=== PATIENT | male | born 1960 | race Caucasian/White ===

== ENCOUNTER 2018-03-12 02:46 | Emergency (ER) | payer SELFPAY ==
[2018-03-12] MEDS ORDERED: HYDROMORPHONE HCL INJ/PF 2 MG/ML AMPULE IV ONE (03:10)
--- NOTE | 2018-03-12 03:17 | ER Document Report ---
ED General - General Chief Complaint: Rib Pain Stated Complaint: RIB INJURY Time Seen by Provider: 03/12/18 02:57 TRAVEL OUTSIDE OF THE [place] IN LAST 30 DAYS: No - HPI Notes: Patient is a 57-year-old male with history of COPD who presents to the ED complaining of right mid back pain, right rib pain, and right upper quadrant soreness status post fall 3 hours ago. Patient states that he was mowing his yard 4 days ago and his zero turn rolled on top of them. Patient states that he has had generalized soreness since then without any sharp pains. Patient states that he was working on his boat and was on an aluminum ladder about 3 feet in the air when he slipped and landed directly on his right side. Patient states that he did not hit his head or lose consciousness. He has not had any nausea or vomiting. Patient states that he is still been eating/drinking without difficulties and is urinating normally. Denies any headache, fever, head injury, neck pain, changes in vision/speech/mentation/hearing, URI, sore throat, chest pain, palpitations, syncope, cough, shortness of breath, wheeze, dyspnea, abdominal pain, nausea/vomiting/diarrhea, urinary retention, dysuria, hematuria, loss of control of bowel or bladder, numbness/tingling, saddle anesthesia, muscle paralysis/weakness, or rash. - Related Data Allergies/Adverse Reactions: Penicillins Allergy (Verified 03/12/18 02:49) Past Medical History - Social History Smoking Status: Current Every Day Smoker Family History: Reviewed & Not Pertinent - Past Medical History Cardiac Medical History: Reports: Hx Hypertension Pulmonary Medical History: Reports: Hx COPD Endocrine Medical History: Reports: Hx Diabetes Mellitus Type 2 GI Medical History: Reports: Hx Gastroesophageal Reflux Disease Past Surgical History: Reports: Hx Appendectomy, Hx Cardiac Surgery - stents/ catheterization - Immunizations Hx Diphtheria, Pertussis, Tetanus Vaccination: Yes Review of Systems - Review of Systems -: Yes All other systems reviewed and negative Physical Exam - Vital signs Vitals: Temp Pulse Resp BP Pulse Ox 98.5 F 83 20 145/87 H 95 03/12/18 02:51 03/12/18 02:51 03/12/18 02:51 03/12/18 02:51 03/12/18 02:51 - Notes Notes: PHYSICAL EXAMINATION: GENERAL: Pt appears to be in pain and discomfort. A&Ox4. Answers questions appropriately. HEAD: Atraumatic, normocephalic. Non-tender. No stanford sign. No bogginess or hematoma. EYES: Pupils equal round and reactive to light, extraocular movements intact, sclera anicteric, conjunctiva are normal. No raccoon eyes/entrapment. No nystagmus. ENT: EAC clear b/l. TM's intact b/l without erythema, fluid, or perforation. Nares patent and without discharge. oropharynx clear without exudates. No tonsilar hypertrophy or erythema. Moist mucous membranes. No sinus tenderness. No hemotympanum/CSF discharge. NECK: Normal range of motion, supple without lymphadenopathy. No rigidity. No midline tenderness. Chest: No ecchymosis. No flail chest. equal rise/fall. Non-tender LUNGS: Breath sounds clear to auscultation bilaterally and equal. No wheezes rales or rhonchi. HEART: Regular rate and rhythm without murmurs, rubs, gallops. ABDOMEN: Soft, nondistended abdomen. No guarding, no rebound. No masses appreciated. Normal bowel sounds present. No ecchymosis. + mild tenderness RUQ near the lower anterior ribs. Musculoskeletal: Ext b/l: FROM to passive/active. Strength 5+/5. No deficits noted. No bony tenderness of extremities. Back: FROM to passive/active. Strength 5+/5. No vertebral point tenderness, stepoffs, or deformities. + tenderness to the rt thoracic ribs with tenderness extending to the anterior lower chest/abd. Extremities: No cyanosis, clubbing, or edema b/l. Peripheral pulses 2+. Capillary refill less than 2 seconds. NEUROLOGICAL: NIH 0. GCS 15. Cranial nerves grossly intact. Normal speech, normal gait. Normal sensory, motor exams. Reflexes 2+ b/l. PSYCH: Normal mood, normal affect. SKIN: Warm, Dry, normal turgor, no rashes or lesions noted. Course - Re-evaluation Re-evalutation: 03/12/18 03:[address] Salgado for a FAST exam. FAST exam was grossly unremarkable. We will obtain an Abd/pelv CT with IV and give him pain medication. XR ordered/Labs ordered. 03/12/18 05:26 Patient is an afebrile, well-hydrated, 57-year-old male who presents to the ED with right rib pain, suspect contusion. Vitals are acceptable without any significant tachycardia, tachypnea, or hypoxia. PE is otherwise unremarkable. CBC, CMP, coags, rib/chest x-ray, abdomen/pelvis CT were unremarkable for any acute pathology. Patient states that the medication helped. FAST exam negative. No other labs or imaging warranted at this time based on H&P. Low suspicion for any pneumothorax, dissection, respiratory compromise, severe dehydration, sepsis, meningitis, acute abdomen, or other systemic emergent condition at this time. Patient is aware that his condition can change from initial presentation and he needs to monitor symptoms closely and seek medical attention for any acute changes. Recommend conservative measures for symptoms. Recheck with your PCM in 3-5 days. Return to the ED with any worsening/ concerning symptoms otherwise as reviewed in discharge. Patient is in agreement. - Vital Signs Vital signs: Temp Pulse Resp BP Pulse Ox 98.5 F 83 20 145/87 H 95 03/12/18 02:51 03/12/18 02:51 03/12/18 02:51 03/12/18 02:51 03/12/18 02:51 - Laboratory Result Diagrams: 03/12/18 03:23 03/12/18 03:23 Laboratory results interpreted by me: 03/12/18 03:23 Sodium 145.8 H Chloride 109 H BUN 23 H Procedures - Ultrasound/Bedside Ultrasound/Bedside Time completed: 03:10 Ultrasound: Normal Notes: 03/12/18 03:10 FAST exam Indication: blunt trauma to the chest/abdomen. Study: Multiple images were obtained of the liver, spleen, bilateral kidneys, bladder, and associated and surrounding peritoneal spaces. No intraperitoneal free fluid was visualized in any potential space. Impression: Negative limited abdominal study for free intraperitoneal fluid. In this setting of trauma, this study was performed, only to evaluate for potential bleeding from trauma. This is not comprehensive exam intended to diagnose all pathology. This study cannot exclude small amounts intraperitoneal bleeding, solid organ injury, retroperitoneal injury, or bowel perforation. Recommend follow up studies as appropriate based on the clinical situation and the time of presentation post injury. The study was personally performed and interpreted by Dr. Salgado. Discharge - Discharge Clinical Impression: Rib pain on right side Condition: Stable Disposition: HOME, SELF-CARE Instructions: Rib Contusion ([facility]) Additional Instructions: Rest, Ice Tylenol/ibuprofen as needed Light stretches daily Strength exercises as able Moist heat and massage may help F/u with your PCP in 3-5 days for a recheck Consider consult(s) with Orthopedics/physical therapy for ongoing/worsening symptoms Return to the ED with any worsening symptoms and/or development of fever, headache, chest pain, palpitations, syncope, shortness of breath, trouble breathing, abdominal pain, n/v/d, blood in stool/urine, loss of control of bowel /bladder, urinary retention, muscle weakness/paralysis, saddle anesthesia, numbness/tingling, or other worsening symptoms that are concerning to you. Prescriptions: Morphine Sulfate [Morphine Ir 15 Mg Tablet] 15 mg PO TID #15 tablet Forms: Elevated Blood Pressure, Smoking Cessation Education Referrals: [facility] [Provider Group] - Follow up as needed
[2018-03-12 03:38] LABS: ABSOLUTE BASOPHILS # (AUTO) 0.1 10^3/uL (0.0-0.2); ABSOLUTE EOSINOPHILS # (AUTO) 0.2 10^3/uL (0.0-0.6); ABSOLUTE LYMPHOCYTES (AUTO) 2.5 10^3/uL (0.5-4.7); BASOPHILS % (AUTO) 0.7 % (0-2); EOSINOPHILS % (AUTO) 2.5 % (0-6); HEMATOCRIT 44.4 % (37.9-51.0); HEMOGLOBIN 15.6 g/dL (13.5-17.0); LYMPHOCYTES % (AUTO) 28.9 % (13-45); MEAN CORPUSCULAR HEMOGLOBIN 30.6 pg (27.0-33.4); MEAN CORPUSCULAR HGB CONC 35.3 g/dL (32.0-36.0); MEAN CORPUSCULAR VOLUME 87 fl (80-97); MONOCYTES % (AUTO) 10.9 % (3-13); PLATELET COUNT 225 10^3/uL (150-450); RED BLOOD COUNT 5.11 10^6/uL (4.35-5.55); RED CELL DISTRIBUTION WIDTH 13.9 % (11.5-14.0); TOTAL CELLS COUNTED % (AUTO) 100 %; WHITE BLOOD COUNT 8.7 10^3/uL (4.0-10.5)
[2018-03-12 03:42] LABS: INTERNATIONAL RATION (INR) 0.94; PROTHROMBIN TIME 13.1 SEC (11.4-15.4)
[2018-03-12 03:43] LABS: PARTIAL THROMBOPLASTIN TIME 29.4 SEC (23.5-35.8)
[2018-03-12 04:07] LABS: ALANINE AMINOTRANSFERASE 36 U/L (21-72); ALKALINE PHOSPHATASE 68 U/L (38-126); ANION GAP 13 (5-19); ASPARTATE AMINO TRANSFERASE 23 U/L (17-59); BILIRUBIN,DIRECT 0.3 mg/dL (0.0-0.4); BILIRUBIN,TOTAL 0.5 mg/dL (0.2-1.3); BLOOD UREA NITROGEN 23 mg/dL (7-20); CARBON DIOXIDE 24 mmol/L (22-30); CHLORIDE 109 mmol/L (98-107); GLUCOSE 108 mg/dL (75-110); POTASSIUM 3.9 mmol/L (3.6-5.0); SODIUM 145.8 mmol/L (137-145)
[2018-03-12 04:42] LABS: TOTAL PROTEIN 6.6 g/dL (6.3-8.2)
--- NOTE | 2018-03-12 05:12 | RADIOLOGY REPORT (SQ) ---
Clinical History : rt rib pain s/p fall , Exam : Right rib series 03/12/2018 3:11 AM CDT Comparisons : none Findings : There is no acute fracture or dislocation of the ribs. There is no periosteal reaction to suggest non-displaced fracture. There is no evidence of pneumothorax. The visualized portions of the lungs are clear without focal consolidation or pleural effusion. The heart and mediastinal contours are normal in appearance. The thoracic spine is age appropriate. The shoulders are unremarkable. Limited evaluation of the upper abdomen demonstrates no gross abnormalities. Impression: No acute fracture or dislocation of the ribs.
--- NOTE | 2018-03-12 05:23 | RADIOLOGY REPORT (SQ) ---
EXAM DESCRIPTION: CT abdomen and pelvis with contrast 03/12/2018 4:18 AM CDT CLINICAL HISTORY: 57 years, Male, Rt rib pain, RUQ pain s/p fall COMPARISON: None TECHNIQUE: Following the administration of intravenous contrast, volumetric CT acquisition was performed through the abdomen and pelvis. Images in the axial and coronal planes were presented for interpretation This exam was performed according to our departmental dose-optimization program, which includes automated exposure control, adjustment of the mA and/or kV according to patient size and/or use of iterative reconstruction technique. FINDINGS: The visualized portions of the lung bases are clear. The cardiomediastinal structures are within normal limits. There is no free air, blood, or fluid within the abdomen/pelvis. There is no acute solid organ injury to the liver-spleen, or kidneys. There is no acute fracture or dislocation of the visualized ribs, lumbar spine, or bony pelvis. There is no acute aortic traumatic injury. Within the upper abdomen, the liver and spleen are normal in size and morphology. There is diffuse fatty infiltration of the liver. The gallbladder is normal in morphology. The intra/extrahepatic biliary tree is normal in appearance. The pancreas and adrenal glands are normal. The kidneys are normal in size bilaterally. The ureters are normal in course and caliber. There is a cyst along the lower pole the right kidney measuring 3.2 cm in diameter. The stomach and small intestines are within normal limits without evidence of bowel dilation or wall thickening. The appendix is not well-visualized. The colon is stool filled and unremarkable. Within the pelvis, the bladder and rectum are normal. The prostate is age-appropriate. There are no pathologically enlarged inguinal, retroperitoneal, portacaval, or mesenteric lymph nodes. The soft tissue structures of the abdominal wall are normal. The visualized osseous structures are within normal limits for the patient's age. The abdominal aorta and its primary branches are normal in course and caliber. Limited evaluation of the venous structures demonstrates no gross abnormalities. IMPRESSION: 1. No acute intra-abdominal traumatic injury. 2. No acute fracture or dislocation. 3. Fatty liver.
[2018-03-12 05:52] VITALS: BP 140/87
== END 2018-03-12 05:52 | disposition home or self-care (01) ==
LOC: ER 02:46
DX: R07.81 Pleurodynia (principal); M54.9 Dorsalgia, unspecified; R10.11 Right upper quadrant pain; V84.5XXA Driver of special agricultural vehicle injured in nontraffic accident, initial encounter; Y93.H2 Activity, gardening and landscaping; Y92.007 Garden or yard of unspecified non-institutional (private) residence as the place of occurrence of the external cause; Z88.0 Allergy status to penicillin; J44.9 Chronic obstructive pulmonary disease, unspecified
CPT/HCPCS: 99284; 96374; 36415; 85025; 85610; 85730; 80053; 71101; 74177; J1170

== ENCOUNTER 2018-04-13 16:43 | Emergency (ER) | payer SELFPAY ==
--- NOTE | 2018-04-13 19:55 | ER Document Report ---
ED Medical Screen (RME) - General Chief Complaint: Abdominal Pain Stated Complaint: ABDOMINAL PAIN Time Seen by Provider: 04/13/18 19:40 Mode of Arrival: Ambulatory Information source: Patient Notes: Patient is a 57-year-old male who presents to the emergency department after having an outpatient CT abdomen pelvis with IV and oral contrast done. This was ordered by Dr. Brasher. Patient reports that he had an injury to his right ribs approximately 1 month ago which is his reason for seeing Dr. Brasher. Patient reports that the reason for the CT to be ordered today was to evaluate for a hematoma. Patient continues to have point tenderness on the lower right ribs anteriorly at the midclavicular line. Patient denies any chest pain, does report some shortness of breath however patient reports he has a history of COPD and his shortness of breath is at his baseline. Patient denies any nausea , vomiting or fever. Patient does report onset of diarrhea today, patient reports he has had diarrhea 5 times since checking into the emergency department. Patient denies any recent antibiotic use. Exam: Point tenderness to anterior right lower ribs just distal to right nipple, swelling also noted to this area on palpation. Lung sounds are clear to auscultation bilaterally. CT abdomen pelvis reading is without any significant findings. I have greeted and performed a rapid initial assessment of this patient. A comprehensive ED assessment and evaluation of the patient, analysis of test results and completion of the medical decision making process will be conducted by additional ED providers. Dictation of this chart was performed using voice recognition software; therefore, there may be some unintended grammatical errors. TRAVEL OUTSIDE OF THE [place] IN LAST 30 DAYS: No - Related Data Allergies/Adverse Reactions: Penicillins Allergy (Verified 04/13/18 16:44) Past Medical History - Social History Chew tobacco use (# tins/day): No Frequency of alcohol use: None Drug Abuse: None - Past Medical History Cardiac Medical History: Reports: Hx Heart Attack - x3, Hx Hypertension Pulmonary Medical History: Reports: Hx COPD Endocrine Medical History: Reports: Hx Diabetes Mellitus Type 2 Renal/ Medical History: Denies: Hx Peritoneal Dialysis GI Medical History: Reports: Hx Gastroesophageal Reflux Disease Past Surgical History: Reports: Hx Appendectomy, Hx Cardiac Surgery - stents/ catheterization - Immunizations Hx Diphtheria, Pertussis, Tetanus Vaccination: Yes Physical Exam - Vital signs Vitals: Temp Pulse Resp BP Pulse Ox 98.5 F 68 18 135/84 H 94 04/13/18 17:21 04/13/18 17:21 04/13/18 17:21 04/13/18 17:21 04/13/18 17:21 Course - Vital Signs Vital signs: Temp Pulse Resp BP Pulse Ox 98.5 F 68 18 135/84 H 94 04/13/18 17:21 04/13/18 17:21 04/13/18 17:21 04/13/18 17:21 04/13/18 17:21
[2018-04-13] MEDS ORDERED: LIDOCAINE 5% (700 MG) TRANSDERMAL ADH..PATCH TP ONE (20:35)
[2018-04-13 21:21] LABS: APPEARANCE,URINE CLEAR; BILIRUBIN,URINE NEGATIVE (NEGATIVE); COLOR,URINE YELLOW; GLUCOSE, URINE NEGATIVE (NEGATIVE); KETONES,URINE NEGATIVE (NEGATIVE); LEUKOCYTE ESTERASE,URINE NEGATIVE (NEGATIVE); NITRITE,URINE NEGATIVE (NEGATIVE); PROTEIN,URINE NEGATIVE (NEGATIVE); URINE SPECIFIC GRAVITY 1.032
--- NOTE | 2018-04-13 21:36 | RADIOLOGY REPORT (SQ) ---
EXAM DESCRIPTION: CHEST SINGLE VIEW COMPLETED DATE/TIME: 04/13/2018 8:35 pm REASON FOR STUDY: right rib pain COMPARISON: 09/15/2015 EXAM PARAMETERS: NUMBER OF VIEWS: One view. TECHNIQUE: Single frontal radiographic view of the chest acquired. RADIATION DOSE: NA LIMITATIONS: None. FINDINGS: LUNGS AND PLEURA: No opacities, masses or pneumothorax. No pleural effusion. MEDIASTINUM AND HILAR STRUCTURES: No masses. Contour normal. HEART AND VASCULAR STRUCTURES: Heart normal in size. Normal vasculature. BONES: No acute findings. HARDWARE: None in the chest. OTHER: No other significant finding. IMPRESSION: NO ACUTE RADIOGRAPHIC FINDING IN THE CHEST. TECHNICAL DOCUMENTATION: JOB ID: [id number] [employer]- All Rights Reserved Reading location - IP/workstation name: [email or web address]
[2018-04-13 22:09] LABS: ABSOLUTE EOSINOPHILS # (AUTO) 0.5 10^3/uL (0.0-0.6); ABSOLUTE LYMPHOCYTES (AUTO) 2.6 10^3/uL (0.5-4.7); ABSOLUTE MONOCYTES (AUTO) 0.8 10^3/uL (0.1-1.4); ABSOLUTE NEUT (AUTO) 4.9 10^3/uL (1.7-8.2); BASOPHILS % (AUTO) 0.4 % (0-2); EOSINOPHILS % (AUTO) 5.5 % (0-6); HEMATOCRIT 46.1 % (37.9-51.0); HEMOGLOBIN 15.9 g/dL (13.5-17.0); MEAN CORPUSCULAR HEMOGLOBIN 30.7 pg (27.0-33.4); MEAN CORPUSCULAR HGB CONC 34.4 g/dL (32.0-36.0); MEAN CORPUSCULAR VOLUME 89 fl (80-97); MONOCYTES % (AUTO) 8.6 % (3-13); PLATELET COUNT 218 10^3/uL (150-450); RED BLOOD COUNT 5.17 10^6/uL (4.35-5.55); RED CELL DISTRIBUTION WIDTH 13.7 % (11.5-14.0); SEGMENTED NEUTROPHILS % (AUTO) 55.5 % (42-78); TOTAL CELLS COUNTED % (AUTO) 100 %; WHITE BLOOD COUNT 8.8 10^3/uL (4.0-10.5)
[2018-04-13 22:33] LABS: ALANINE AMINOTRANSFERASE 47 U/L (21-72); ALKALINE PHOSPHATASE 74 U/L (38-126); ANION GAP 12 (5-19); ASPARTATE AMINO TRANSFERASE 27 U/L (17-59); BILIRUBIN,DIRECT 0.2 mg/dL (0.0-0.4); BILIRUBIN,TOTAL 0.4 mg/dL (0.2-1.3); BLOOD UREA NITROGEN 16 mg/dL (7-20); CALCIUM 9.2 mg/dL (8.4-10.2); CARBON DIOXIDE 26 mmol/L (22-30); CHLORIDE 105 mmol/L (98-107); CREATINE KINASE 73 U/L (55-170); GLUCOSE 101 mg/dL (75-110); LIPASE 170.6 U/L (23-300); POTASSIUM 3.9 mmol/L (3.6-5.0); TOTAL PROTEIN 6.7 g/dL (6.3-8.2)
[2018-04-13 22:43] LABS: CREATINE KINASE MB 0.72 ng/mL (<4.55)
[2018-04-13 22:47] LABS: TROPONIN I < 0.012 ng/mL
[2018-04-14] MEDS ORDERED: LIDOCAINE 1%/EPINEPHRINE INJ 20 ML VIAL INJ ONE (01:11)
--- NOTE | 2018-04-14 02:00 | PDOC CONSULTATION ---
Consultation Consult Date: 04/14/18 Consult reason:: Evaluate right lower chest pain History of Present Illness Patient complains of: Right upper quadrant and right lower chest pain and right flank pain ever since his fall a month ago. Also complaining of right axillary lump History of Present Illness: FLOWER FAULKNER is a 57 year old male status post fall from a ladder falling on a flat piece of wood on his right lower chest 1 month ago. Was evaluated in the ER and discharged. He complains of pain at the right lower chest and the right upper abdomen ever since. He also noted right axillary lump that eventually ruptured with drainage of blood. This large lump disappeared however he also developed a smaller lump more superficially that he finds to be very painful. No purulent drainage. No fever. Patient has some pain with deep breaths. Some dark urine but no hematuria. His right chest and upper abdominal pain is worsened with deep breathing and any pressure in the area. Past Medical History Cardiac Medical History: Reports: Myocardial Infarction - x3, Hypertension Pulmonary Medical History: Reports: Chronic Obstructive Pulmonary Disease (COPD) Endocrine Medical History: Reports: Diabetes Mellitus Type 2 GI Medical History: Reports: Gastroesophageal Reflux Disease Past Surgical History Past Surgical History: Reports: Appendectomy, Other - Foot debridement Social History Smoking Status: Current Every Day Smoker Frequency of Alcohol Use: None Hx Recreational Drug Use: No Hx Prescription Drug Abuse: No Family History Family History: Reviewed & Not Pertinent Parental Family History Reviewed: No Children Family History Reviewed: No Sibling(s) Family History Reviewed.: No Medication/Allergy Home Medications: Omeprazole Magnesium [Prilosec Otc] 20 mg PO Q6A 07/24/16 Acetaminophen [Tylenol 325 mg Tablet] 650 mg PO Q4HP PRN tablet 07/26/16 Albuterol Sulfate [Proair HFA Inhalation Aerosol 8.5 gm MDI] 2 puff IH Q4H PRN # 1 mdi 07/26/16 Budesonide/Formoterol Fumarate [Symbicort HFA 160-4.5 mcg Inhaler 6 gm] 2 puff NEB BID #1 inhaler 07/26/16 Docusate Sodium [Colace 100 mg Capsule] 100 mg PO DAILY #30 capsule 07/26/16 Hydrocodone/Acetaminophen [[place] 5-325 mg Tablet] 1 - 2 tab PO Q4H PRN #20 tablet 07/26/16 Lovastatin [Mevacor] 10 mg PO DAILY #30 tablet 07/26/16 Metformin HCl [Glucophage 500 mg Tablet] 500 mg PO WBRKFST #30 tablet 07/26/16 Nicotine [Nicoderm 7 mg/24 Hr Transdermal Patch] 1 each TD DAILY #7 patch.td24 07/26/16 Sulfamethoxazole/Trimethoprim [Septra-Ds 800-160 mg Tablet] 1 tab PO Q12 #20 tablet 08/06/16 Morphine Sulfate [Morphine Ir 15 Mg Tablet] 15 mg PO TID #15 tablet 03/12/18 Allergies/Adverse Reactions: Penicillins Allergy (Verified 04/13/18 16:44) Physical Exam Vital Signs: Temp Pulse Resp BP Pulse Ox 98.5 F 66 18 136/72 H 97 04/13/18 20:19 04/13/18 20:19 04/13/18 17:21 04/13/18 20:19 04/13/18 20:19 Intake & Output 04/12/18 04/13/18 04/14/18 06:59 06:59 06:59 Weight 93.6 kg General appearance: PRESENT: no acute distress, cooperative Eye exam: PRESENT: conjunctiva pink Respiratory exam: PRESENT: clear to auscultation tonny - Mostly clear but some scattered wheezing., other - No ecchymosis no crepitus palpable. Patient is tender along his right lower chest to his right flank and his right subcostal region. Cardiovascular exam: PRESENT: RRR GI/Abdominal exam: PRESENT: other - Abdomen is soft and is nondistended. there is tenderness along his right lower rib but not true abdominal tenderness. Certainly no peritoneal signs. Musculoskeletal exam: PRESENT: other - No tenderness along his spine. Neck is supple Skin exam: PRESENT: other - At his right axilla there is a superficial subcutaneous lump about a centimeter in size that is very tender but there is no overlying erythema nor induration. Results Laboratory Results: 04/13/18 21:30 04/13/18 21:30 04/13/18 04/13/18 04/13/18 20:25 21:30 21:30 WBC 8.8 RBC 5.17 Hgb 15.9 Hct 46.1 MCV 89 MCH 30.7 MCHC 34.4 RDW 13.7 Plt Count 218 Seg Neutrophils % 55.5 Lymphocytes % 30.0 Monocytes % 8.6 Eosinophils % 5.5 Basophils % 0.4 Absolute Neutrophils 4.9 Absolute Lymphocytes 2.6 Absolute Monocytes 0.8 Absolute Eosinophils 0.5 Absolute Basophils 0.0 Sodium 143.0 Potassium 3.9 Chloride 105 Carbon Dioxide 26 Anion Gap 12 BUN 16 Creatinine 0.73 Est GFR ( Amer) > 60 Est GFR (Non-Af Amer) > 60 Glucose 101 Calcium 9.2 Total Bilirubin 0.4 AST 27 ALT 47 Alkaline Phosphatase 74 Total Protein 6.7 Albumin 4.0 Lipase 170.6 Urine Color YELLOW Urine Appearance CLEAR Urine pH 7.0 Ur Specific [place] 1.032 Urine Protein NEGATIVE Urine Glucose (UA) NEGATIVE Urine Ketones NEGATIVE Urine Blood NEGATIVE Urine Nitrite NEGATIVE Ur Leukocyte Esterase NEGATIVE Urine WBC (Auto) 0 Urine RBC (Auto) 1 04/13/18 04/13/18 04/14/18 21:30 21:30 00:45 Creatine Kinase 73 CK-MB (CK-2) 0.72 Troponin I < 0.012 < 0.012 Impressions: Chest X-Ray 04/13/18 20:03 IMPRESSION: NO ACUTE RADIOGRAPHIC FINDING IN THE CHEST. Assessment & Plan - Diagnosis (1) Contusion of right chest wall Qualifiers: Encounter type: subsequent encounter Qualified Code(s): S20.211D - Contusion of right front wall of thorax, subsequent encounter Is this a current diagnosis for this admission?: Yes Plan: From his fall a month ago. I do not see evidence of significant intrathoracic injury. I do not see evidence of retained hematoma on CT scan. There is some asymmetry of his musculature in this area that I can appreciate on CT and I suspect that he is having pain due to contusion and muscle injury. There is nothing I can offer him from a surgical standpoint. Just needs time for healing. There is no evidence of a significant intra-abdominal injury. He does not have hematuria by urine analysis and no evidence of renal injury by CT therefore I do not think he has a significant renal contusion. I have encouraged him to stay active but avoid strenuous activity. (2) Sebaceous cyst of right axilla Is this a current diagnosis for this admission?: Yes Plan: Highly symptomatic sebaceous cyst of the right axilla. With his complaints of severe pain at this site along with marked tenderness, I performed a excision of this sebaceous cyst under local anesthetic in the ER. The wound was packed with gauze. Wound care instructions were given to the patient and I will have him follow-up at our surgical clinic next week. Since I did not find any pus I do not think he needs any antibiotics.
--- NOTE | 2018-04-14 02:05 | Operative Report ---
Operative Report DATE OF SURGERY: 04/14/18 PREOPERATIVE DIAGNOSIS: Highly symptomatic right axillary sebaceous cyst POSTOPERATIVE DIAGNOSIS: Same OPERATION: Excision of right axillary sebaceous cyst measuring half a centimeter in size. SURGEON: GERALD RASHID ANESTHESIA: Local TISSUE REMOVED OR ALTERED: Right axillary subcutaneous benign-appearing sebaceous cyst about half centimeter in size with no pus. Excised but not submitted to pathology COMPLICATIONS: None ESTIMATED BLOOD LOSS: Minimal INTRAOPERATIVE FINDINGS: Superficial right axillary subcutaneous half centimeter sebaceous cyst with no pus. PROCEDURE: Informed consent was obtained. Procedure was done at the patient's bedside. Patient's right axilla was prepped and draped in the usual sterile fashion. Local anesthetic was administered consisting of lidocaine with epinephrine. Ellipse of skin was taken with the underlying palpable subcutaneous lump measuring about half centimeter in size. It had a typical characteristic of a sebaceous cyst but no pus. It was not submitted to pathology since it appeared benign. There was slight oozing at the operative site which was controlled with gauze packing. Dressings were applied. Wound care instructions given to the patient. Patient tolerated procedure well with no apparent complications. I will have him follow-up at the [facility] in 1 week.
[2018-04-14 02:08] VITALS: BP 133/76
--- NOTE | 2018-04-14 02:34 | ER Document Report ---
ED General - General Chief Complaint: Abdominal Pain Stated Complaint: ABDOMINAL PAIN Time Seen by Provider: 04/13/18 19:40 Mode of Arrival: Ambulatory TRAVEL OUTSIDE OF THE [place] IN LAST 30 DAYS: No - HPI Patient complains to provider of: Abdominal pain Notes: Patient coming in referred to the ER by his local orthopedic physician after being evaluated for right upper quadrant and right lower quadrant right flank pain. Patient states ongoing since he had a traumatic event beginning of March. Patient denies any fevers chills nausea vomiting diarrhea. Otherwise patient states that his orthopedic physician sent him over for CAT scan was told to come to the ER afterwards because of a possible hematoma. Otherwise patient is resting comfortably upon my evaluation states he does smoke does not drink not using drugs. - Related Data Allergies/Adverse Reactions: Penicillins Allergy (Verified 04/13/18 16:44) Home Medications: glucophage, methacore, symbicort, albuterol, aspirin Past Medical History - General Information source: Patient - Social History Smoking Status: Current Every Day Smoker Chew tobacco use (# tins/day): No Frequency of alcohol use: None Drug Abuse: None Family History: Reviewed & Not Pertinent Patient has suicidal ideation: No Patient has homicidal ideation: No - Past Medical History Cardiac Medical History: Reports: Hx Heart Attack - x3, Hx Hypertension Pulmonary Medical History: Reports: Hx COPD Endocrine Medical History: Reports: Hx Diabetes Mellitus Type 2 Renal/ Medical History: Denies: Hx Peritoneal Dialysis GI Medical History: Reports: Hx Gastroesophageal Reflux Disease Past Surgical History: Reports: Hx Appendectomy, Hx Cardiac Surgery - stents/ catheterization, Other - Foot debridement - Immunizations Hx Diphtheria, Pertussis, Tetanus Vaccination: Yes Review of Systems - Review of Systems Constitutional: No symptoms reported EENT: No symptoms reported Cardiovascular: No symptoms reported Respiratory: No symptoms reported Gastrointestinal: Abdominal pain Genitourinary: No symptoms reported Male Genitourinary: No symptoms reported Musculoskeletal: No symptoms reported Skin: No symptoms reported Hematologic/Lymphatic: No symptoms reported Neurological/Psychological: No symptoms reported -: Yes All other systems reviewed and negative Physical Exam - Vital signs Vitals: Temp Pulse Resp BP Pulse Ox 98.5 F 68 18 135/84 H 94 04/13/18 17:21 04/13/18 17:21 04/13/18 17:21 04/13/18 17:21 04/13/18 17:21 Interpretation: Normal - General General appearance: Appears well, Alert - HEENT Head: Normocephalic, Atraumatic Eyes: Normal Pupils: PERRL - Respiratory Respiratory status: No respiratory distress Chest status: Nontender Breath sounds: Normal Chest palpation: Normal - Cardiovascular Rhythm: Regular Heart sounds: Normal auscultation Murmur: No - Abdominal Inspection: Normal Distension: No distension Bowel sounds: Normal Tenderness: Tender - Diffuse tenderness in the right upper quadrant right lower quadrant Organomegaly: No organomegaly - Back Back: Normal, Nontender - Extremities General upper extremity: Normal inspection, Nontender, Normal color, Normal ROM , Normal temperature General lower extremity: Normal inspection, Nontender, Normal color, Normal ROM , Normal temperature, Normal weight bearing. No: Shailesh's sign - Neurological Neuro grossly intact: Yes Cognition: Normal Orientation: AAOx4 Candelario Coma Scale Eye Opening: Spontaneous Candelario Coma Scale Verbal: Oriented Rueter Coma Scale Motor: Obeys Commands Candelario Coma Scale Total: 15 Speech: Normal Motor strength normal: LUE, RUE, LLE, RLE Sensory: Normal - Psychological Associated symptoms: Normal affect, Normal mood - Skin Skin Temperature: Warm Skin Moisture: Dry Skin Color: Normal Course - Re-evaluation Re-evalutation: 04/14/18 05:11 Patient coming in for evaluation of diffuse abdominal pain. He called Dr. Brasher has seen the patient in for further evaluation stating that he is also contacted surgeon overnight houseperson who was going to come and evaluate the patient. Laboratory studies and CT scan otherwise are negative for any acute pathology. I contacted surgeon overnight houseperson Dr. Rashid who did evaluate the patient on his physical examination fine and axillary sebaceous cyst that was bothering patient did offer to remove this for the patient. This procedure was performed wound care instructions were given to the patient. Otherwise no critical pathology seen more likely possible muscle bruising or contusion still causing the patient's pain. Patient will be discharged home with follow-up with surgical clinic. - Vital Signs Vital signs: Temp Pulse Resp BP Pulse Ox 98.4 F 71 14 133/76 H 94 04/14/18 02:07 04/14/18 02:07 04/14/18 02:07 04/14/18 02:07 04/14/18 02:07 - Laboratory Result Diagrams: 04/13/18 21:30 04/13/18 21:30 Laboratory results interpreted by me: 04/13/18 20:25 Urine Urobilinogen 2.0 H Discharge - Discharge Clinical Impression: Tobacco abuse, Symptomatic sebaceous cyst, Right abdominal wall pain Condition: Good Disposition: HOME, SELF-CARE Instructions: Abdominal Pain ([facility]) Additional Instructions: Your laboratory values chest x-ray EKG showed any acute surgical or infectious pathology. CT scan does likely have some bruising to the muscles from your recent trauma. This will take multiple weeks to heal. I would recommend that she stop smoking is that her lung examination does show some fine wheezes tonight. We will give you an inhaler to use for any shortness of breath I will refill your Symbicort. I will also prescribe the medication for severe pain. I would recommend sticking with Tylenol and Motrin combination 3 times a day for regular pain. Please make sure that she follow-up with a surgical clinic in 1 week please keep the wound clean and dry changing her dressing daily clean with soap and water. Return to the ER for any other concerns. Prescriptions: Ibuprofen [Motrin 600 mg Tablet] 600 mg PO Q8HP PRN #21 tablet PRN Reason: Budesonide/Formoterol Fumarate [Symbicort 160-4.5 Mcg Inhaler] 10.2 gm IH BID # 1 hfa.aer.ad Morphine Sulfate [Morphine Ir 15 Mg Tablet] 15 mg PO TID #12 tablet Referrals: GERALD RASHID MD [ACTIVE STAFF] - Follow up as needed (Call for an appointment in 1 week)
--- NOTE | 2018-04-14 09:56 | EKG REPORT ---
SEVERITY:- NORMAL ECG - SINUS RHYTHM : Confirmed by: Thu Weems MD 14-Apr-2018 09:56:08
== END 2018-04-14 02:50 | disposition home or self-care (01) ==
LOC: ER 16:43
DX: L72.3 Sebaceous cyst (principal); R10.9 Unspecified abdominal pain; F17.200 Nicotine dependence, unspecified, uncomplicated; I10 Essential (primary) hypertension; J44.9 Chronic obstructive pulmonary disease, unspecified; Z88.0 Allergy status to penicillin; I25.2 Old myocardial infarction
CPT/HCPCS: 93005; 99285; 36415; 82553; 82550; 83690; 85025; 80053; 81001; 84484; 71045; 93010; J3490

== ENCOUNTER → 2018-04-13 | Outpatient (CLI) | payer SELFPAY ==
--- NOTE | 2018-04-13 16:21 | RADIOLOGY REPORT (SQ) ---
EXAM DESCRIPTION: CT ABDOMEN WITH IV ORAL CONT COMPLETED DATE/TIME: 04/13/2018 3:52 pm REASON FOR STUDY: PLEURODYNIA R07.81 PLEURODYNIA COMPARISON: 03/12/2018 TECHNIQUE: CT scan of the abdomen performed with intravenous and with oral contrast using helical sc anning technique with dynamic intravenous contrast injection. Images reviewed with lung, soft tissue, and bone windows. Reconstructed coronal and sagittal MPR images reviewed. Delayed images for evaluat ion of the urinary system also acquired and evaluated. All images stored on PACS. All CT scanners at this facility use dose modulation, iterative reconstruc tion, and/or weight based dosing when appropriate to reduce radiation dose to as low as reasonably ac hievable (ALARA). [facility]: Dose Right [facility]: CareDose [facility]: Dose Right [facility]: Teradose 4D [facility]: [place] CONTRAST TYPE AND DOSE: contrast/concentration: Isovue 350.00 mg/ml; Total Contrast Delivered: 100.0 ml; Total Saline Delivered: 72.0 ml RENAL FUNCTION: Creatinine 0.8 RADIATION DOSE: CT Rad equipment meets quality standard of care and radiation dose reduction techniq ues were employed. CTDIvol: 11.9 - 13.6 mGy. DLP: 1041 mGy-cm. . LIMITATIONS: None. FINDINGS: LOWER CHEST: No significant findings. No nodules or infiltrates. LIVER: Normal size. No masses. No dilated ducts. SPLEEN: Normal size. No focal lesions. PANCREAS: No masses. No significant calcifications. No adjacent inflammation or peripancreatic fluid collections. Pancreatic duct not dilated. GALLBLADDER: No identified stones by CT criteria. No inflammatory changes to suggest cholecystitis. ADRENAL GLANDS: No significant masses or asymmetry. RIGHT KIDNEY AND URETER: No solid masses. No significant calcifications. No hydronephrosis or hyd roureter. LEFT KIDNEY AND URETER: No solid masses. No significant calcifications. No hydronephrosis or hydr oureter. AORTA AND VESSELS: No aneurysm. No dissection. Renal arteries, SMA, celiac without stenosis. RETROPERITONEUM: No retroperitoneal adenopathy, hemorrhage or masses. BOWEL AND PERITONEAL CAVITY: No masses or inflammatory changes. No free fluid or peritoneal masses. APPENDIX: Not included. ABDOMINAL WALL: No masses. No hernias. BONES: No significant or acute findings. OTHER: No other significant finding. IMPRESSION: NORMAL CT OF THE ABDOMEN WITH INTRAVENOUS CONTRAST. COMMENT: Findings were discussed with the ordering physician at 1615 hours on this date. TECHNICAL DOCUMENTATION: JOB ID: [id number] Quality ID # [id number]: Final reports with documentation of one or more dose reduction techniques (e.g., Au tomated exposure control, adjustment of the mA and/or kV according to patient size, use of iterative reconstruction technique) 2010 [employer]- All Rights Reserved Reading location - IP/workstation name: [email or web address]
== END ==
LOC: RAD 13:23
PROVIDERS: ATTEND Orthopaedic Surgery
DX: R07.81 Pleurodynia (principal)
CPT/HCPCS: 74160; 82565

== ENCOUNTER → 2018-11-23 | Outpatient (CLI) | payer BC ==
--- NOTE | 2018-11-23 15:37 | RADIOLOGY REPORT (SQ) ---
EXAM DESCRIPTION: CHEST PA/LATERAL COMPLETED DATE/TIME: 11/23/2018 2:51 pm REASON FOR STUDY: CHEST PAIN COMPARISON: None. NUMBER OF VIEWS: Two view. TECHNIQUE: Frontal and lateral radiographic views of the chest acquired. LIMITATIONS: None. FINDINGS: LUNGS AND PLEURA: No opacities, masses or pneumothorax. No pleural effusion. MEDIASTINUM AND HILAR STRUCTURES: No masses or contour abnormalities. HEART AND VASCULATURE: Heart normal size. No evidence for failure. BONY STRUCTURES: No acute findings. HARDWARE: None. OTHER: No other significant finding. IMPRESSION: NO SIGNIFICANT RADIOGRAPHIC FINDING IN THE CHEST. TECHNICAL DOCUMENTATION: JOB ID: [id number] [employer]- All Rights Reserved Reading location - IP/workstation name: [email or web address]
== END ==
LOC: OD 14:40
PROVIDERS: ATTEND Family Medicine
DX: R07.9 Chest pain, unspecified (principal)
CPT/HCPCS: 71046